=== PATIENT | male | born 1980 | race African-American/Black ===

== ENCOUNTER 2017-01-31 15:34 | Outpatient (CLI) | payer MEDICAID | END 2017-01-31 15:35 | disposition critical access hospital (66) | DX: M25.551 Pain in right hip (principal); S01.81XA Laceration without foreign body of other part of head, initial encounter; V43.51XA Car driver injured in collision with sport utility vehicle in traffic accident, initial encounter; Y92.413 State road as the place of occurrence of the external cause | CPT/HCPCS: A0425; A0427 ==

== ENCOUNTER 2017-01-31 16:05 | Emergency (ER) | payer MEDICAID ==
[2017-01-31] MEDS ORDERED: HYDROmorphone 1 MG/ML SYRINGE IVP STA ×4 (16:19→19:58)
[2017-01-31] MEDS ORDERED: BUFFERED LIDOCAINE 10 ML SYRINGE SUBQ STA (16:19)
[2017-01-31] MEDS ORDERED: ONDANSETRON 4 MG/2 ML VIAL IVP STA (16:19)
[2017-01-31] MEDS ORDERED: SODIUM CHLORIDE 0.9% 1,000 ML IV ONE (16:19)
[2017-01-31] MEDS ORDERED: HYDROmorphone 1 MG/ML SYRINGE ONE ×3 (16:25→19:58)
[2017-01-31] MEDS ORDERED: ONDANSETRON 4 MG/2 ML VIAL ONE (16:26)
[2017-01-31] MEDS ORDERED: BUFFERED LIDOCAINE 10 ML SYRINGE ONE (16:28)
[2017-01-31] MEDS ORDERED: IOPAMIDOL-300 100 ML VIAL IVP ONE (17:25)
== END 2017-01-31 20:20 | disposition short-term general hospital (02) ==
DX: S32.461A Displaced associated transverse-posterior fracture of right acetabulum, initial encounter for closed fracture (principal); S01.81XA Laceration without foreign body of other part of head, initial encounter; V43.52XA Car driver injured in collision with other type car in traffic accident, initial encounter; Y92.488 Other paved roadways as the place of occurrence of the external cause
CPT/HCPCS: 12014; 36415; 70450; 71260; 72125; 73502; 73552; 73560; 74177; 80053; 83690; 85025; 86850; 86900; 86901; 96361; 96374; 96375; 96376; 99284; 99285; J1170; Q9967

== ENCOUNTER 2017-01-31 20:26 | Outpatient (CLI) | payer MEDICAID | END 2017-01-31 20:27 | disposition short-term general hospital (02) | DX: M25.551 Pain in right hip (principal); V43.51XA Car driver injured in collision with sport utility vehicle in traffic accident, initial encounter | CPT/HCPCS: A0425; A0426 ==

== ENCOUNTER 2017-11-12 23:48 | Outpatient (CLI) | payer MEDICAID | END 2017-11-12 23:49 | disposition EMS.NT | LOC: EMS 23:48 | PROVIDERS: ATTEND Surgery | DX: Z04.1 Encounter for examination and observation following transport accident (principal); V47.6XXA Car passenger injured in collision with fixed or stationary object in traffic accident, initial encounter; Y92.413 State road as the place of occurrence of the external cause ==